=== PATIENT | female | born 1995 | race Caucasian/White ===

== ENCOUNTER 2018-10-08 12:44 | Emergency (ER) | payer OTHER ==
[2018-10-08 12:59] VITALS: O2SAT 99
--- NOTE | 2018-10-08 13:18 | ERPHSYRPT ---
- History of Present Illness Time Seen by Provider: 10/08/18 13:06 Source: patient Exam Limitations: no limitations Patient Subjective Stated Complaint: Bottom right side mouth pain that is radiating upward to her ear, pain for the past 3 days but today is the worst Triage Nursing Assessment: Pt c/o of mouth pain on the right side and is unable to get into a dentist due to insurance issues, holding mouth and crying, vitals wnl, rates pain 10/10 and stated that the pain is at its max and could not get any worse Physician History: 22-year-old white female who arrives with complaint of pain in her right mandibular and maxillary region around the molar symptoms for 3 days. She states she's been taking lots of Tylenol and took some Aleve . Past medical history includes fibroids and had scratched fever.. Past surgical history includes locked removed from her groin Social history patient denies tobacco alcohol or illicit drug use Timing/Duration: day(s) Severity: moderate (did you do this tooth) Modifying Factors: Improves With: nothing Associated Symptoms: No nausea, No vomiting, No abdominal pain, No shortness of breath, No heartburn, No diaphoresis, No cough, No chills, No chest pain, No fever, No headaches, No loss of appetite, No malaise, No rash, No syncope, No seizure, No weakness Allergies/Adverse Reactions: No Known Drug Allergies Allergy (Verified 10/08/18 13:00) Hx Tetanus, Diphtheria Vaccination/Date Given: Yes Hx Influenza Vaccination/Date Given: No Hx Pneumococcal Vaccination/Date Given: No - Review of Systems Constitutional: No Fever, No Chills Eyes: No Symptoms Ears, Nose, & Throat: Mouth Pain, No Ear Pain, No Ear Discharge, No Hearing Changes, No Tinnitus, No Nose Pain, No Nose Congestion, No Nose Discharge, No Sinus Drainage, No Epistaxis, No Mouth Swelling, No Loose Teeth, No Throat Pain , No Throat Swelling, No Hoarse, No Painful Swallowing, No Snoring, No Stridor Respiratory: No Cough, No Dyspnea Cardiac: No Chest Pain, No Edema, No Syncope Abdominal/Gastrointestinal: No Abdominal Pain, No Nausea, No Vomiting, No Diarrhea Genitourinary Symptoms: No Dysuria Musculoskeletal: No Back Pain, No Neck Pain Skin: No Rash Neurological: No Dizziness, No Focal Weakness, No Sensory Changes Psychological: No Symptoms Endocrine: No Symptoms All Other Systems: Reviewed and Negative - Past Medical History Pertinent Past Medical History: Yes Neurological History: No Pertinent History ENT History: No Pertinent History Cardiac History: No Pertinent History Respiratory History: No Pertinent History Endocrine Medical History: No Pertinent History Musculoskeletal History: No Pertinent History GI Medical History: No Pertinent History History: No Pertinent History Psycho-Social History: No Pertinent History Female Reproductive Disorders: Fibroids Other Medical History: cat scratch fever - Past Surgical History Past Surgical History: Yes Neuro Surgical History: No Pertinent History Cardiac: No Pertinent History Respiratory: No Pertinent History Gastrointestinal: No Pertinent History Genitourinary: No Pertinent History Musculoskeletal: No Pertinent History Female Surgical History: No Pertinent History Other Surgical History: "lump" removed from groin - Social History Smoking Status: Current every day smoker How long have you smoked: 3 YEARS Exposure to second hand smoke: Yes Drug Use: none Patient Lives Alone: No - Female History Hx Now: No - Nursing Vital Signs Nursing Vital Signs: Initial Vital Signs Temperature 98.3 F 10/08/18 12:51 Pulse Rate 65 10/08/18 12:51 Blood Pressure 101/81 10/08/18 12:51 O2 Sat by Pulse Oximetry 99 10/08/18 12:51 Pain Scale Pain Intensity 10 - Physical Exam General Appearance: mild distress, alert Eye Exam: PERRL/EOMI, eyes nml inspection Ears, Nose, Throat Exam: normal ENT inspection, TMs normal, pharynx normal, moist mucous membranes, other (patient with tender tooth right mandibular molar) Neck Exam: normal inspection, non-tender, supple, full range of motion Respiratory Exam: normal breath sounds, lungs clear, No respiratory distress Cardiovascular Exam: regular rate/rhythm, normal heart sounds, normal peripheral pulses, capillary refill <2 sec Gastrointestinal/Abdomen Exam: soft, normal bowel sounds, No tenderness, No mass Back Exam: normal inspection, normal range of motion, No CVA tenderness, No vertebral tenderness Extremity Exam: normal inspection, normal range of motion, pelvis stable Neurologic Exam: alert, oriented x 3, cooperative, data management consultant II-XII nml as tested, normal mood/affect, nml cerebellar function, nml station & gait, sensation nml, No motor deficits SpO2 Interpretation: normal (99%) SpO2: 99 - Progress Progress: improved Progress Note: 10/08/18 13:16 22-year-old white female arrives with complaint of pain in her right mandibular or maxillary region symptoms for 2-3 days. She states she has a bad tooth in the area but cannot get into a dentist she states she doesn't have insurance. Patient has been taking Tylenol for this apparently has been taking more than she should have told her to stop taking Tylenol. Will go ahead and place patient on antibiotics./ Will give patient a shot of Toradol she will be recommended to take either Advil or Aleve for pain. It is reinforced that she needs to see a dentist. 10/08/18 13:18 patient denies chance of . 10/08/18 13:28Will give patient viscous lidocaine and have her soak a cotton ball in it and place it The adjacent tooth every one hour as needed #20 ml. - Departure Departure Disposition: Home Clinical Impression: Pain, dental Condition: Fair Critical Care Time: No Referrals: HUMBERTO ZAVALETA MD [Primary Care Provider] - Additional Instructions: Return home. Amoxicillin 500 mg orally 3 times a day for 10 days. Viscous lidocaine 20 milliliters soak cotton ball and viscous lidocaine and apply to adjacent tooth every hour as needed do not swallow but spit out. Stop taking Tylenol. Advil every 6 hours. Or Aleve every 12 hours as needed for pain. Followup with your dentist. Return for acute distress or for severe symptoms. Prescriptions: Amoxicillin 500 mg PO TID #30 capsule
[2018-10-08] MEDS ORDERED: XYLOCAINE VISCOUS 2% 20 ML CUP PO ONE (13:26)
[2018-10-08] MEDS ORDERED: XYLOCAINE HCl Viscous ONE (13:50)
[2018-10-08 14:01] VITALS: BP 118/78; PULSE 78
== END 2018-10-08 14:00 | disposition home or self-care (01) ==
LOC: ED 12:44
DX: K08.89 Other specified disorders of teeth and supporting structures (principal)
CPT/HCPCS: 99283; A9270-GY

== ENCOUNTER 2019-11-27 17:51 | Emergency (ER) | payer MEDICAID, OTHER ==
[2019-11-27] MEDS ORDERED: Sodium Chloride 0.9% 1000 ML 1,000 ML IV STA (18:29)
[2019-11-27 18:43] LABS: Absolute Neutrophil Ct (ANC) 5.92 (1.4-6.9); BASOPHIL % 0.2 % (0.0-0.4); Basophil (Absolute #) 0.02 (0-0.4); Eosinophil % 1.6 % (0.00-5.0); Eosinophil (Absolute #) 0.15 (0-0.5); Hematocrit 40.9 % (35-47); Hemoglobin 13.3 gm/dl (12.0-16.0); Lymphocyte (Absolute #) 2.63 (1.0-4.6); Lymphocytes % 28.5 % (24.0-44.0); Mean Cell Volume 95.6 fl (78-100); Mean Corpuscular Hemoglobin 31.1 pg (26-32); Mean Corpuscular Hgb Concent. 32.5 g/dl (32-36); Mean Platelet Volume 10.9 fl (7.5-11.0); Monocyte (Absolute #) 0.52 (0.0-1.3); Monocytes % 5.6 % (0.0-12.0); Neutrophil % 64.1 % (36.0-66.0); Platelet Count 257 K/mm3 (150-450); Red Blood Count 4.28 M/mm3 (4.1-5.4); Red Cell Distribution Width 14.3 % (11.5-14.0); White Blood Count 9.2 K/mm3 (4.0-10.5)
[2019-11-27] MEDS ORDERED: Sodium Chloride 0.9% 1000 ML 1,000 ML ONE (18:47)
[2019-11-27 18:55] LABS: ALBUMIN 4.7 g/dL (3.5-5.0); ALKALINE PHOSPHATASE 63 U/L (38-126); ANION GAP 10.6 MEQ/L (5-15); BLOOD UREA NITROGEN 11 mg/dL (7-17); CHLORIDE 105 mmol/L (98-107); Calcium 9.1 mg/dL (8.4-10.2); Carbon Dioxide 27 mmol/L (22-30); Creatinine 1 0.67 mg/dL (0.52-1.04); Glucose 80 mg/dL (74-106); Potassium 3.8 mmol/L (3.5-5.1); SGOT/AST 27 U/L (14-36); SGPT/ALT 17 U/L (0-35); SODIUM 139 mmol/L (137-145); Total Protein 8.3 g/dL (6.3-8.2)
--- NOTE | 2019-11-27 19:11 | ERPHSYRPT ---
- History of Present Illness Time Seen by Provider: 11/27/19 18:00 Source: patient Exam Limitations: no limitations Patient Subjective Stated Complaint: Pt had a tubal 3 years ago and she began bleeding yesterday after just having a period 2 weeks ago, she is bleeding clots and filling tampons every 30 minutes, pt states that she feels that she is and having a miscarriage Triage Nursing Assessment: Pt brought self to the ER, vitals wnl, pt states that she feels dizzy, pt is anemic, pulses normal, rates RLQ pain as 6/10, pain with palpatation to the RLQ, denies pain to the left quadrants, diaphoretic Physician History: Patient is a 24-year-old female G4, P3, M1 presents to our ED with complaints of pelvic pain and vaginal bleeding. Symptoms began yesterday. Patient is concerned with . However she voices that she had a tubal ligation approximately 3 years ago. Patient's vaginal bleeding is brisk per patient. She states that she soaks 1 pad every 45 minutes. Patient feels somewhat dizzy. She has a history of anemia. Patient's pelvic pain described as an ache that is localized to the right pelvic region. No associated trauma. No fever. No nausea or vomiting. Last menstrual period was approximately 10 days ago per patient. No associated chest pain or shortness of breath. No nausea vomiting or diaphoresis. No easy bruising. No rectal bleeding. No hematuria dysuria. Severity: moderate Modifying Factors: Improves With: other (Pain worse with palpation.) Associated Symptoms: No nausea, No vomiting, No shortness of breath, No diaphoresis, No chills, No fever, No headaches, No loss of appetite, No malaise, No syncope Allergies/Adverse Reactions: No Known Drug Allergies Allergy (Verified 11/27/19 18:12) Home Medications: Aripiprazole [Abilify] 10 mg PO DAILY 11/27/19 [History] Methylphenidate HCl [Ritalin] 20 mg PO DAILY 11/27/19 [History] Hx Tetanus, Diphtheria Vaccination/Date Given: Yes Hx Influenza Vaccination/Date Given: No Hx Pneumococcal Vaccination/Date Given: No Travel Risk - International Travel Have you traveled outside of the country in past 3 weeks: No - Coronavirus Screening Close contact with a COVID-19 positive Pt in past 14-21 Days: No - Review of Systems Constitutional: No Symptoms, No Fever, No Chills Eyes: No Symptoms Ears, Nose, & Throat: No Symptoms Respiratory: No Symptoms, No Cough, No Dyspnea Cardiac: No Symptoms, No Chest Pain, No Edema, No Syncope Abdominal/Gastrointestinal: No Symptoms, No Abdominal Pain, No Nausea, No Vomiting, No Diarrhea Genitourinary Symptoms: No Symptoms, No Dysuria Musculoskeletal: No Symptoms, No Back Pain, No Neck Pain Skin: No Symptoms, No Rash Neurological: No Symptoms, No Dizziness, No Focal Weakness, No Sensory Changes Psychological: No Symptoms Endocrine: No Symptoms Hematologic/Lymphatic: No Symptoms Immunological/Allergic: No Symptoms All Other Systems: Reviewed and Negative - Past Medical History Pertinent Past Medical History: Yes Neurological History: No Pertinent History ENT History: No Pertinent History Cardiac History: No Pertinent History Respiratory History: No Pertinent History Endocrine Medical History: No Pertinent History Musculoskeletal History: No Pertinent History GI Medical History: No Pertinent History History: No Pertinent History Psycho-Social History: No Pertinent History, Bipolar Female Reproductive Disorders: Fibroids Other Medical History: cat scratch fever, anemic - Past Surgical History Past Surgical History: Yes Neuro Surgical History: No Pertinent History Cardiac: No Pertinent History Respiratory: No Pertinent History Gastrointestinal: No Pertinent History Genitourinary: No Pertinent History Musculoskeletal: No Pertinent History Female Surgical History: No Pertinent History Other Surgical History: "lump" removed from groin - Social History Smoking Status: Current every day smoker How long have you smoked: 3 YEARS Exposure to second hand smoke: Yes Drug Use: none Patient Lives Alone: No - Female History Hx Last Menstrual Period: 11/12/2019 Hx Now: No (unsure but has tubal) - Nursing Vital Signs Nursing Vital Signs: Initial Vital Signs Temperature 98.8 F 11/27/19 17:58 Pulse Rate 64 11/27/19 17:58 Blood Pressure 110/75 11/27/19 17:58 O2 Sat by Pulse Oximetry 100 11/27/19 17:58 Pain Scale Pain Intensity 6 - Physical Exam General Appearance: no apparent distress, alert Eye Exam: PERRL/EOMI, eyes nml inspection Ears, Nose, Throat Exam: normal ENT inspection, TMs normal, pharynx normal, moist mucous membranes Neck Exam: normal inspection, non-tender, supple, full range of motion Respiratory Exam: normal breath sounds, lungs clear, No respiratory distress Cardiovascular Exam: regular rate/rhythm, normal heart sounds, normal peripheral pulses Gastrointestinal/Abdomen Exam: soft, normal bowel sounds, No tenderness, No mass Pelvic Exam: vaginal bleeding, other (Blood in the vaginal vault. No active bleeding.), No adnexal tenderness, No adnexal mass, No mass, No cervical motion tenderness, No uterine tenderness Back Exam: normal inspection, normal range of motion, No CVA tenderness, No vertebral tenderness Extremity Exam: normal inspection, normal range of motion, pelvis stable Neurologic Exam: alert, oriented x 3, cooperative, normal mood/affect, nml cerebellar function, nml station & gait, sensation nml, No motor deficits Skin Exam: normal color, warm, dry, No rash Lymphatic Exam: No adenopathy SpO2 Interpretation: normal SpO2: 100 O2 Delivery: Room Air - Course Nursing assessment & vital signs reviewed: Yes EKG Interpreted by Me: RATE (55), Sinus Rhythm, NORMAL AXIS, NORMAL INTERVALS - Radiology Ultrasound Exam Pelvis Ultrasound: discussed w/radiologist (Per technology project manager, no torsion no significant findings.) Ordered Tests: Active Orders 24 hr Category Date Time Status EKG-ER Only STAT Care 11/27/19 18:29 Active IV Insertion STAT Care 11/27/19 18:29 Active PELVIC [US] Stat Exams 11/27/19 18:30 Taken CBC W DIFF Stat Lab 11/27/19 18:25 Completed CMP Stat Lab 11/27/19 18:25 Completed HCG QUALITATIVE,SERUM Stat Lab 11/27/19 18:25 Completed HCG,QUALITATIVE URINE Stat Lab 11/27/19 17:59 Completed Wet Prep Stat Lab 11/27/19 19:52 Completed Medication Summary Discontinued Medications Generic Name Dose Route Start Last Admin Trade Name Freq PRN Reason Stop Dose Admin Sodium Chloride 1,000 mls @ 999 mls/hr 11/27/19 18:29 11/27/19 19:47 Sodium Chloride 0.9% 1000 Ml IV 11/27/19 19:29 Infused .Q1H1M STA Infusion Sodium Chloride Confirm 11/27/19 18:47 Sodium Chloride 0.9% 1000 Ml Administered 11/27/19 18:48 Dose 1,000 mls @ ud .ROUTE .K-MED ONE Lab/Rad Data: Laboratory Result Diagrams 11/27/19 18:25 11/27/19 18:25 Laboratory Results 11/27/19 11/27/19 11/27/19 Range/Units 19:52 18:25 18:25 WBC (4.0-10.5) K/mm3 RBC (4.1-5.4) M/mm3 Hgb (12.0-16.0) gm/dl Hct (35-47) % MCV (78-100) fl MCH (26-32) pg MCHC (32-36) g/dl RDW (11.5-14.0) % Plt Count (150-450) K/mm3 MPV (7.5-11.0) fl Gran % (36.0-66.0) % Eos # (Auto) (0-0.5) Absolute Lymphs (auto) (1.0-4.6) Absolute Monos (auto) (0.0-1.3) Lymphocytes % (24.0-44.0) % Monocytes % (0.0-12.0) % Eosinophils % (0.00-5.0) % Basophils % (0.0-0.4) % Absolute Granulocytes (1.4-6.9) Basophils # (0-0.4) Sodium 139 (137-145) mmol/L Potassium 3.8 (3.5-5.1) mmol/L Chloride 105 (98-107) mmol/L Carbon Dioxide 27 (22-30) mmol/L Anion Gap 10.6 (5-15) MEQ/L BUN 11 (7-17) mg/dL Creatinine 0.67 (0.52-1.04) mg/dL Estimated GFR > 60.0 ML/MIN Glucose 80 (74-106) mg/dL Calcium 9.1 (8.4-10.2) mg/dL Total Bilirubin 0.30 (0.2-1.3) mg/dL AST 27 (14-36) U/L ALT 17 (0-35) U/L Alkaline Phosphatase 63 (38-126) U/L Serum Total Protein 8.3 H (6.3-8.2) g/dL Albumin 4.7 (3.5-5.0) g/dL Serum , Qual NEGATIVE (Negative) Urine HCG, Qual (Negative) WBC (Wet Prep) None Seen RBC (Wet Prep) Many Epi Cells (Wet Prep) Few Bacteria (Wet Prep) Few Clue Cells (Wet Prep) None Seen Trichomonas (Wet Prep) None Seen Budding Yeast (Wet Prp) None Seen 11/27/19 11/27/19 Range/Units 18:25 17:59 WBC 9.2 (4.0-10.5) K/mm3 RBC 4.28 (4.1-5.4) M/mm3 Hgb 13.3 (12.0-16.0) gm/dl Hct 40.9 (35-47) % MCV 95.6 (78-100) fl MCH 31.1 (26-32) pg MCHC 32.5 (32-36) g/dl RDW 14.3 H (11.5-14.0) % Plt Count 257 (150-450) K/mm3 MPV 10.9 (7.5-11.0) fl Gran % 64.1 (36.0-66.0) % Eos # (Auto) 0.15 (0-0.5) Absolute Lymphs (auto) 2.63 (1.0-4.6) Absolute Monos (auto) 0.52 (0.0-1.3) Lymphocytes % 28.5 (24.0-44.0) % Monocytes % 5.6 (0.0-12.0) % Eosinophils % 1.6 (0.00-5.0) % Basophils % 0.2 (0.0-0.4) % Absolute Granulocytes 5.92 (1.4-6.9) Basophils # 0.02 (0-0.4) Sodium (137-145) mmol/L Potassium (3.5-5.1) mmol/L Chloride (98-107) mmol/L Carbon Dioxide (22-30) mmol/L Anion Gap (5-15) MEQ/L BUN (7-17) mg/dL Creatinine (0.52-1.04) mg/dL Estimated GFR ML/MIN Glucose (74-106) mg/dL Calcium (8.4-10.2) mg/dL Total Bilirubin (0.2-1.3) mg/dL AST (14-36) U/L ALT (0-35) U/L Alkaline Phosphatase (38-126) U/L Serum Total Protein (6.3-8.2) g/dL Albumin (3.5-5.0) g/dL Serum , Qual (Negative) Urine HCG, Qual NEGATIVE (Negative) WBC (Wet Prep) RBC (Wet Prep) Epi Cells (Wet Prep) Bacteria (Wet Prep) Clue Cells (Wet Prep) Trichomonas (Wet Prep) Budding Yeast (Wet Prp) - Progress Progress: improved Progress Note: 11/27/19 20:49 Patient reassessed. She is comfortable. Patient declined pain medication. Ultrasound negative for torsion. Labs are essentially normal at this time. Patient is not . Bleeding on pelvic exam. Patient states she is ready for discharge. Patient agrees to follow-up with primary care doctor within 48 hours for reevaluation. 11/27/19 20:54 Counseled pt/family regarding: lab results, diagnosis, need for follow-up, rad results - Departure Departure Disposition: Home Clinical Impression: Vaginal bleeding, Pelvic cramping Condition: Stable Critical Care Time: No Referrals: HUMBERTO ZAVALETA MD [Primary Care Provider] - Additional Instructions: Discharge/Care Plan JABIER RODRIGUEZ was seen on 11/27/19 in the Emergency Room. The patient was counseled regarding Diagnosis,Lab results, Imaging studies, need for follow up and when to return to the Emergency Room. Prescriptions given: Discharge Note I have spoken with the patient and/or caregivers. I have explained the patient's condition, diagnosis and treatment plan based on the information available to me at this time. I have answered the patient's and/or caregiver's questions and addressed any concerns. The patient and/or caregivers have as good understanding of the patient's diagnosis, condition and treatment plan as can be expected at this point. The vital signs have been stable. The patient's condition is stable and appropriate for discharge from the emergency department. The patient will pursue further outpatient evaluation with the primary care physician or other designated or consulting physician as outlined in the discharge instructions. The patient and/or caregivers are agreeable to this plan of care and follow-up instructions have been explained in detail. The patient and/or caregivers have received these instruction. The patient/and or caregivers are aware that any significant change in condition or worsening of symptoms should prompt an immediate return to this or the closest emergency department or call 911. Prescriptions: Ketorolac Tromethamine [Toradol] 10 mg PO TID PRN 5 Days #15 tablet PRN Reason: Pain
[2019-11-27 20:02] LABS: Bacteria Few; Clue Cells None Seen; Trichomonas None Seen
[2019-11-27 20:03] LABS: Red Blood Cells Many; White Blood Cells None Seen; Yeast None Seen
[2019-11-27 21:02] VITALS: BP 108/48; PULSE 56; O2SAT 98
[2019-11-27 21:24] LABS: CHLAMYDIA DNA DETECTED (NEGATIVE); GC DNA Probe NOT DETECTED (NEGATIVE)
--- NOTE | 2019-11-28 08:52 | XRAY ---
Indication: Right lower quadrant pain. Two-dimensional transabdominal pelvic sonogram performed. Comparison: None Urinary bladder not fully distended producing suboptimal acoustic window. Uterus anteverted measuring 9.7 x 4.8 x 6.1 cm. No focal solid/cystic uterine mass. Endometrial stripe measures 10.8 mm. No endometrial cavity mass or fluid collection. Right ovary measures 2.8 x 2.6 x 1.7 cm and the left measures 2.6 x 2.0 x 2.9 cm with normal perfusion bilaterally. No suspicious adnexal mass or free fluid. Impression: Negative transabdominal pelvic sonogram. Comment: Preliminary report was given.
== END 2019-11-27 21:10 | disposition home or self-care (01) ==
LOC: ED 17:51
DX: N93.9 Abnormal uterine and vaginal bleeding, unspecified (principal); R10.2 Pelvic and perineal pain
CPT/HCPCS: 36000; 36415; 76856; 80053; 81025; 84703; 85025; 87210; 87491; 87591; 93005; 96360; 99284

== ENCOUNTER 2021-10-15 20:25 | Emergency (ER) | payer OTHER ==
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
[2021-10-15 21:13] LABS: Absolute Neutrophil Ct (ANC) 4.79 x10^3/uL (1.4-6.9); Basophil (Absolute #) 0.03 x10^3/uL (0-0.4); Eosinophil (Absolute #) 0.15 x10^3/uL (0-0.5); Hematocrit 38.2 % (35-47); Hemoglobin 12.5 g/dL (12.0-16.0); Lymphocyte (Absolute #) 1.98 x10^3/uL (1.0-4.6); Lymphocytes % 26.3 % (24.0-44.0); Mean Cell Volume 94.8 fL (78-100); Mean Corpuscular Hgb Concent. 32.7 g/dL (32-36); Mean Platelet Volume 10.8 fL (7.5-11.0); Monocyte (Absolute #) 0.55 x10^3/uL (0.0-1.3); Monocytes % 7.3 % (0.0-12.0); Neutrophil % 63.7 % (36.0-66.0); Platelet Count 253 x10^3/uL (150-450); Red Blood Count 4.03 x10^6/uL (4.1-5.4); Red Cell Distribution Width 14.5 % (11.5-14.0); White Blood Count 7.5 x10^3/uL (4.0-10.5)
[2021-10-15 21:24] LABS: ALKALINE PHOSPHATASE 64 U/L (38-126); ANION GAP 13.3 MEQ/L (5-15); BLOOD UREA NITROGEN 8 mg/dL (7-17); CHLORIDE 105 mmol/L (98-107); Calcium 8.7 mg/dL (8.4-10.2); Carbon Dioxide 23 mmol/L (22-30); Creatinine 1 0.69 mg/dL (0.52-1.04); EST GLOMERULAR FILTRATION RATE > 60.0 ML/MIN; Glucose 99 mg/dL (74-106); Potassium 3.7 mmol/L (3.5-5.1); SGOT/AST 128 U/L (14-36); SGPT/ALT 67 U/L (0-35); SODIUM 138 mmol/L (137-145)
[2021-10-15] MEDS ORDERED: MOTRIN 600 MG PO ONE (22:50)
[2021-10-15] MEDS ORDERED: MOTRIN 600 MG ONE (22:53)
[2021-10-15 22:57] VITALS: BP 136/79; PULSE 67; O2SAT 98
[2021-10-15 23:00] LABS: Appearance CLEAR (CLEAR); Bilirubin NEGATIVE (NEGATIVE); Dipstick done @ ? MAIN LAB; Glucose NEGATIVE (NEGATIVE); Ketones NEGATIVE (NEGATIVE); Nitrite NEGATIVE (NEGATIVE); Protein,Urine Dip NEGATIVE (Negative); RBC NEGATIVE Ery/ul (0-5); Specific Gravity >=1.030 (1.005-1.025); Urobilinogen 4 mg/dL (0-1)
[2021-10-15 23:03] LABS: Epithelial Cells RARE /HPF (FEW); Mucus SLIGHT /HPF (NEGATIVE); RBC 0-2 /HPF (0-2); WBC 0-2 /HPF (0-5)
[2021-10-15 23:04] LABS: Urine Cultured Indicated? NO
[2021-10-15 23:14] LABS: Barbiturate,Urine NEGATIVE (NEGATIVE); Benzodiazepine,Urine POSITIVE (NEGATIVE); Cocaine,Urine NEGATIVE (NEGATIVE); Methadone,Urine NEGATIVE (NEGATIVE); Opiate,Urine NEGATIVE (NEGATIVE); PCP,Urine NEGATIVE (NEGATIVE); THC,Urine NEGATIVE (NEGATIVE)
[2021-10-15 23:44] LABS: Amphetamine,Urine POSITIVE (NEGATIVE)
--- NOTE | 2021-10-16 07:42 | XRAY ---
Indication: Short of breath. Comparison: None Portable apical lordotic chest demonstrates normal heart, lungs, bony thorax.
--- NOTE | 2021-10-16 07:44 | XRAY ---
Indication: Head injury Multiple contiguous axial images obtained through the head without contrast. Comparison: None Normal appearing brain parenchyma, ventricles, and bony calvarium. Visualized paranasal sinuses and mastoid air cells are clear. Impression: Normal CT head without contrast exam. Comment: Preliminary interpretation made by [facility]. No critical discrepancy.
== END 2021-10-15 23:03 | disposition left against medical advice (07) ==
LOC: ED 20:25
DX: F41.0 Panic disorder [episodic paroxysmal anxiety] (principal); S09.90XA Unspecified injury of head, initial encounter; Y04.0XXA Assault by unarmed brawl or fight, initial encounter; R06.02 Shortness of breath; Z59.9 Problem related to housing and economic circumstances, unspecified; Z72.0 Tobacco use; Z79.899 Other long term (current) drug therapy
CPT/HCPCS: 36000; 36415; 70450; 71045; 80053; 80307; 81015; 85025; 99284; A9270-GY